=== PATIENT | female | born 1935 | race Caucasian/White ===

== ENCOUNTER 2022-07-07 15:39 | Inpatient (IN) | payer OTHER, MEDICARE ==
[~2022-07-07] VITALS: Ht 152.4 cm; Wt 65.0 kg
[2022-07-07] MEDS ORDERED: HYDROCODON-ACE1 EAC8 PO (16:12)
[2022-07-07] MEDS ORDERED: METHOCARBAMOL750 MG PO (16:14)
[2022-07-07] MEDS ORDERED: AMITRIPTYLINE H10 MG PO (16:15)
[2022-07-07] MEDS ORDERED: HYDROCHLOROTH12.5 MG PO (16:16)
[2022-07-07] MEDS ORDERED: PRENATAL FORMU1 EAC3 PO (16:17)
[2022-07-07 18:38] VITALS: BP 105/73
--- NOTE | 2022-07-07 18:47 | EKG ---
[facility] [address] [facility] [address] [facility] [place] [address] Signed Sinus rhythm with 1st degree AV block Right bundle branch block Left anterior fascicular block Bifascicular block Abnormal ECG No previous ECGs available Confirmed by MOUSTAPHA ENCARNACION MD ([id number]) on 07/07/2022 6:47:38 PM Electronically Signed By: MOUSTAPHA ENCARNACION MD 07/07/22 1847 PATIENT NAME: CHAPIS LAZARO Electrocardiogram DATE OF : [birth year] PHYSICIAN: MOUSTAPHA ENCARNACION MD REPORT #: [id number] REPORT IS CONFIDENTIAL AND NOT TO BE RELEASED WITHOUT AUTHORIZATION
--- NOTE | 2022-07-07 19:14 | NUR ---
Admin fentanyl 50mcg IV for 7/10 left hip pain.
[2022-07-07 21:36] VITALS: BP 101/67
[2022-07-08 01:46] VITALS: BP 106/64
--- NOTE | 2022-07-08 02:08 | NUR ---
Went in and did two am vitals. Family at bedside. Took water, other liquids and food away from the bedside. Call light within reach. Patient does not need anything at this time.
[2022-07-08 05:35] VITALS: BP 127/68
--- NOTE | 2022-07-08 06:23 | NUR ---
PT WAS ADMITTED FROM THE ER WITH A LEFT HIP FX. PT STARTED ON IVF AND DILAUDID GIVEN FOR PAIN MANGEMENT. PUREWICK IN PLACE AND WORKING WELL. PT NPO SINCE MIDNIGHT IN PREPARATION FOR SURGERY TODAY. PT'S FAMILY REMAINED WITH PT THROUGHOUT SHIFT. SAFETY PRECAUTIONS MAINTAINED. CALL LIGHT WITHIN REACH. WILL CONTINUE TO MONITOR.
--- NOTE | 2022-07-08 07:40 | NUR ---
THIS RN TO ROOM TO ASSIST WITH PREPARING PT FOR SURGERY. CHG WIPE DOWN COMPLETED BY APARNA MONTERO. ANATHESIA SUMMARY COMPLETE. PRE PROCEEDURE CHECK LIST COMPLETE. ABX NOTED TO BE ORDERED FOR TOMORROW, PHARMACY CALLED AND TALENT ACQUISITION OPERATIONS MANAGER TO OR DOSE MOVED FORWARD TO TODAY. CITY AUDITOR TO BEDSIDE TO REVIEW CASE WITH PT. PT AND FAMILY STATE THEIR QUESTIONS HAVE BEEN ANSWERED. NO ADDITIONAL NEEDS AT THIS TIME. SCD'S INPLACE. CALL LIGHT WITHIN REACH. BED RAILS UP.
--- NOTE | 2022-07-08 08:14 | NUR ---
Patient left floor to surgery at this time.
--- NOTE | 2022-07-08 09:34 | NUR ---
PT TAKEN TO CT BY THIS RN. PT REPORTS 9/10 PAIN IN LEFT HIP WITH MOVEMENT TO CT TABLE. SEE MAR FOR MEDICATION GIVEN. PT RETURNED TO ROOM. FAMILY AND PTS RN UPDATED. NO ADDITIONAL NEEDS AT THIS TIME. CALL LIGHT WITHIN REACH. BED RAILS UP.
[2022-07-08 11:08] VITALS: BP 132/80
--- NOTE | 2022-07-08 11:34 | NUR ---
Dilaudid 0.5mg IV admin at this time for reported 7/10 left hip pain. Patient is alert and oriented x4, vital signs stable. SP02 97% on room air, cont 02 sat monitoring intact. Patient denies chest pain and or shortness of breath. Patient has visitors at bedside. No current needs at this time. Personal supplies and call light within reach.
[2022-07-08] MEDS ORDERED: OXYCODONE-ACET1 EAC3 PO (12:08)
[2022-07-08] MEDS ORDERED: METHOCARBAMOL500 MG PO (12:09)
[2022-07-08] MEDS ORDERED: BACLOFEN10 MG PO (12:09)
[2022-07-08] MEDS ORDERED: AMLODIPINE BESY10 MG PO (12:10)
[2022-07-08] MEDS ORDERED: FLUTICASONE PRO16 GM NAS (12:20)
[2022-07-08] MEDS ORDERED: VITAMIN D325 MCG PO (13:08)
[2022-07-08] MEDS ORDERED: CALCIUM 500-VI1 EAC3 PO (13:10)
[2022-07-08 17:38] VITALS: BP 126/79
--- NOTE | 2022-07-08 18:09 | EKG ---
[facility] [address] [facility] [place] [address] Signed Sinus tachycardia Right bundle branch block Left anterior fascicular block Bifascicular block T wave abnormality, consider lateral ischemia Abnormal ECG No previous ECGs available Confirmed by MOUSTAPHA ENCARNACION MD ([id number]) on 07/08/2022 6:09:33 PM Electronically Signed By: MOUSTAPHA ENCARNACION MD 07/08/22 1809 PATIENT NAME: CAHPIS LAZARO Electrocardiogram DATE OF : [birth year] PHYSICIAN: MOUSTAPHA ENCARNACION MD REPORT #: [id number] REPORT IS CONFIDENTIAL AND NOT TO BE RELEASED WITHOUT AUTHORIZATION
--- NOTE | 2022-07-08 19:44 | NUR ---
REPORT RECEIVED FROM DAY SHIFT RN. PT RESTING IN BED. TELE READING ST WITH HR LOW 100'S. PT STATED THAT PAIN IS OK. SAFETY PRECAUTIONS MAINTAINED. CALL LIGHT WITHIN REACH. WILL CONTINUE TO MONITOR.
--- NOTE | 2022-07-08 19:55 | NUR ---
PT IV ALARMING, NEW BAG FLUIDS NOW INFUSING. IV SITE WNL. DENIES OTHER NEEDS.
--- NOTE | 2022-07-08 20:45 | NUR ---
PT ASSESSED AND MEDICATIONS GIVEN. PT TURNED SLIGHTLY TO THEIR RIGHT SIDE. VSS. TELE READING NSR WITH A HR OF 98. PT'S GRANDDAUGHTER IS STAYING ST BEDSIDE. SAFETY PRECAUTINOS MAINTAINED. CALL LIGHT WITHIN REACH. WILL CONTINUE TO MONITOR.
[2022-07-08 20:53] VITALS: BP 118/78
--- NOTE | 2022-07-09 02:57 | NUR ---
IV ALARMING, CPOX ALARMING; PT BENT ARM. PT GRIMACING WHEN COVERING UP, ASK PT IF SHE WAS IN PAIN SHE SAID NOT BAD. MED WITH MEME CERVANTES, PT THANKED THIS RN, WELL GRANDDAUGHTER. ENCOURAGED PT TO LET STAFF KNOW WHEN SHE IS HURTING. CURRENT HR 98 PER TELE.
[2022-07-09 05:40] VITALS: BP 115/72
--- NOTE | 2022-07-09 06:35 | NUR ---
PT RESTED WELL DURING THE SHIFT. TELE READING ST WITH A HR IN THE LOW 100'S. VSS. PAIN MANAGED WITH SCHEDULED PERCOCET AND PRN DILAUDID. IVF INFUSING PER ORDER. GOOD OUTPUT NOTED. PT'S GRANDDAUGHTER STAYED AT BEDSIDE THROUGHOUT SHIFT. SAFETY PRECAUTIONS MAINTAINED. CALL LIGHT WITHN REACH. WILL CONTINUE TO MONITOR.
--- NOTE | 2022-07-09 07:35 | NUR ---
RECIEVED BEDSIDE REPORT FROM CADENCE NAIR. PT IS AWAKE AND ALERT IN BED, GRANDDAUGHTER AT BEDSIDE. PT DENIED NEEDS AT THIS TIME. DENIED PAIN. NO NEW ORDERS.
--- NOTE | 2022-07-09 08:01 | NUR ---
PT REPORTS PAIN ON LEFT ANKLE, DESCRIBED "BURNING". UPON ASSESSMENT, PTS SOCK WAS BUNCHED UP AT ANKLE WITH FOOTIE SCD OVER THE AREA. REMOVED SOCK AND SCD, MOVED ANDREINA HOSE UP. DIME SIZED NON-BLANCHABLE RED AREA ON LEFT ANKLE BONE. CONSULTED WITH CADENCE MORENO, RECOMMENDED USING FOOT PILLOWS. ANDREINA HOSE AND SOCK SMOOTHED OUT AND SCD REPLACED. FOOT PILLOWS PLACED TO RELIEVE PRESSURE. PT REPORTED IT FEELS BETTER.
--- NOTE | 2022-07-09 09:01 | NUR ---
PT STILL COMPLAINING OF PAIN. 0.5MG DILAUDID GIVEN WITH GOOD RESULTS. DR VIDES ROUNDED WHILE IN THE ROOM. SURGERY MAY BE POSTPONED DUE TO HEART RATE. PT HAS NO NEEDS AT THIS TIME.
--- NOTE | 2022-07-09 09:52 | NUR ---
PT PAIN IS WELL CONTROLLED AT THIS TIME. UPDATED FAMILY ON PLAN OF CARE. PT AND FAMILY HAVE NO QUESTIONS. REFILLED WATER AND ICE PER PT REQUEST. NO OTHER NEEDS AT THIS TIME. GRANDSON IS AT BEDSIDE.
[2022-07-09 10:55] VITALS: BP 80/52
--- NOTE | 2022-07-09 11:42 | NUR ---
PT SLEEPING SOUNDLY. DID NOT WAKE WHEN STARTING MAG PIGGYBACK.
[2022-07-09 14:45] VITALS: BP 100/66
--- NOTE | 2022-07-09 14:45 | NUR ---
PT IS AWAKE AND ALERT IN BED. SHE HAS FAMILY AT BEDSIDE. SHE STATES "I'M FEELING GREAT!". HR LOWER THAN IT HAS BEEN, SILL >100.
--- NOTE | 2022-07-09 17:08 | NUR ---
PT CALL LIGHT ON. PT REPORTS HER BED IS WET. PURE WICK SUCTION NOTED TO NOT BE TURNED ON. LINENS CHANGED. ERNESTINA CARE AND PARTIAL BED BATH PERFORMED. NEW PURE WICK PLACED AND SUCTION ON. PT REPORTS 7/10 PAIN WITH ACTIVITY OF BED CHANGE AND BATH. SCHEDULED AND PRN MEDICATION GIVEN. PT REPORTS SHE FEELS COMFORTABLE NOW. NO ADDITONAL REQUESTS OR COMPLAINTS. BED RAILS UP. CALL LIGHT WITHIN REACH.
--- NOTE | 2022-07-09 18:10 | NUR ---
PT HAD MAG RIDER TODAY. HR REDUCED AFTER MEDICATION, TELE D/C. PUREWICK IN PLACE, LARGE VOID. BED CHANGE. FAMILY AT BEDSIDE. PT IS EATING FOOD FAMILY BROUGHT IN. NO BM SINCE 07/07, SENNA AND MIRALAX GIVEN. 1 EPISODE OF SEVERE PAIN EARLY IN SHIFT, PAIN CONTROLED AFTER SCHEDULED PERCOCET AND PRN DILAUDID. MODERATE PAIN AFTER BED CHANGE, PAIN CONTROLLED WITH PRN AND SCHEDULED MEDICATIONS. SURGERY IS STILL SCHEDULED FOR [place] AM.
[2022-07-09 18:11] VITALS: BP 84/52
--- NOTE | 2022-07-09 19:28 | NUR ---
REPORT RECEIVED FROM DAY SHIFT RN. PT LYING IN BED ALERT AND ORIENTED. REPORTS SHE IS COMFORTABLE AT THIS TIME. TELE DC'D PER ORDER. FAMILY IN ROOM. WHITE BOARD UPDATED. CALL LIGHT IN REACH.
[2022-07-09 20:29] VITALS: BP 93/60
[2022-07-09 20:35] VITALS: BP 94/60
--- NOTE | 2022-07-09 20:52 | NUR ---
DR. VIDES CALLED AND PROVIDED UPDATE ON BP AND HR. DR. CAMEJO NOTIFIED FOR LOW BP. NEW ORDERS RECEIVED.
--- NOTE | 2022-07-09 21:32 | NUR ---
EVENING ASSESSMENT COMPLETE. SCHEDULED MEDS ADMIN PER EMAR. SCHEDULED PAIN MEDS ADMIN FOR 10 HEADACHE/LEFT HIP PAIN. DENIES NAUSEA. IV BOLUS INFUSING PER ORDER. NEW 20G IV PLACED IN LEFT FOREARM. PT NOEL WELL. IV DC'D IN RIGHT FOREARM WNL. TIP INTACT. SCD'S/TEDS/HP IN PLACE. CMS INTACT BILAT. ASSISTED TO REPOSITION. PUREWICK IN PLACE WITH CLEAR YELLOW URINE. FAMILY IN ROOM TO SPEND THE NIGHT. EXTRA BLANKET AND PILLOWS PROVIDED. PT/FAMILY DENY QUESTIONS OR CONCERNS. CALL LIGHT IN REACH.
--- NOTE | 2022-07-09 22:21 | NUR ---
PT REPORTS "BURNING" PAIN IN LEFT LEG THAT RADIATES UP TO LEFT HIP. ASSISTED PT TO REPOSITION LEFT LEG. PRN FOR PAIN ADMIN PER EMAR.
--- NOTE | 2022-07-10 00:05 | NUR ---
PT RESTING WITH EYES CLOSED. AWAKENS EASILY. REPORTS PAIN IS TOLERABLE AT THIS TIME. AT REST SpO2 87-88% ON RA. 1L/NC PLACED. SpO2 MID 90'S. HR 90'S. PT NPO AT THIS TIME. NO FURTHER NEEDS.
--- NOTE | 2022-07-10 02:50 | NUR ---
PT RESTING WITH EYES CLOSED. RESPIRATIONS EVEN. AWAKENS EASILY TO VOICE. ANESTHESIA PROVIDER ON FLOOR TO REVIEW CHART. BLOOD PRESSURE ASSESSED PER REQUEST, WNL. PT DENIES PAIN. ASSESSMENT UNCHANGED. NO NEEDS AT THIS TIME. FAMILY IN ROOM. CALL LIGHT IN REACH.
[2022-07-10 02:52] VITALS: BP 118/69
--- NOTE | 2022-07-10 04:06 | NUR ---
CALL LIGHT ANSWERED. PT COLD, WARM BLANKET PROVIDED. PT DENIES PAIN. CPOX IN PLACE. SpO2 MID 90'S WITH 1L/NC. HR LOW 100'S. NO FURTHER NEEDS. CALL LIGHT IN REACH.
--- NOTE | 2022-07-10 04:58 | NUR ---
DR VIDES CALLED FOR UPDATED BP/HR. RECORDED 0252 REPORTED. PLAN SURGERY AT 0800.
[2022-07-10 05:47] VITALS: BP 132/84
--- NOTE | 2022-07-10 06:02 | NUR ---
ASSISTED PT TO USE BEDPAN WITH NO RESULTS. ERNESTINA CARE DONE. NEW PUREWICK IN PLACE. SURGICAL WIPE DOWN COMPLETE. CLEAN GOWN AND LINENS PROVIDED. PT REPORTS LEFT HIP PAIN 9/10 AFTER ACTIVITY. PRN FOR PAIN ADMIN PER EMAR. PT ON RA AT THIS TIME, SpO2 MID 90'S. 2PA TO REPOSITION IN BED. SCD'S/TEDS/HP IN PLACE. CMS INTACT BILAT. PT REMAINS NPO FOR PROCEDURE. IVF INFUSING WNL. NO FURTHER NEEDS. CALL LIGHT IN REACH.
--- NOTE | 2022-07-10 07:46 | NUR ---
PT IS OFF THE FLOOR FOR SURGERY.
[2022-07-10 11:15] VITALS: BP 115/89
--- NOTE | 2022-07-10 11:15 | NUR ---
PT BACK TO ROOM FROM PACU BY CADENCE ELLIOTT. BEDSIDE REPORT GIVEN TO THIS RN. DR CAMEJO IN FOR HOSPITALIST CONSULT.
--- NOTE | 2022-07-10 11:34 | NUR ---
07/10/22 1134 Sheets,Jacqui 0937 PT ARRIVED TO PACU ON RA, O2 SAT LOW 90S AND [employer] REQUEST O2 MASK 6L, O2 MASK PLACE. PT EYES OPEN AND PT LOOKING STRAIGHT. O2 INCREASED TO UPPER 90S. PT ABLE TO FOLLOW COMMANDS FOR DEEP BREATHING WHEN ASKED RESP ENEN AND UNLABORED. 0944 PT REPORTS PAIN IN RIGHT HIP, NO GRMACING NOTED BUT FURROWED BROW NOTED. PT DENIES NAUSEA. O2 REMOVED, O2 SAT 100% AND PT CONTINEUS TO DEEP BREATHE OFF AND ON. 0950 2L NC PLACED DUE TO 02 SAT LOW 90S. PT REPORTS 10/10 PAIN IN HIP AND DOWN HER LEG. [id number] PAIN MEDICATIONS GIVEN WITH NO DECREASE IN 02 SAT AND NO DECREASE IN PAIN LEVEL PER PT. CYRO CUFF PLACED. VOID NOTED IN PURWICK. 1015 [employer] CALLED AND NEW ORDER RECEIVED FROM [employer]. [id number] PAIN MEDICATION GIVEN PER EMAR. 1100 PT REPORTS PAIN IS SLIGHTLY BETTER 8/10, PT DENIES BURNING DOWN HER LEG. PT LAUGHING WITH RN AND PLAN OF CARE DISCUSSED. [employer] UPDATED AND AGREES WITH PLAN, PT TO RETURN TO ROOM AND RESUME ORAL MEDICATION. 1115 PT TO ROOM AND REPORT GIVEN TO RN, DR. CAMEJO AND FAMILY AT BEDSIDE. ALL QUESTIONS ANSWERED.
--- NOTE | 2022-07-10 11:45 | NUR ---
PT IN TO ASSIST PT TO THE CHAIR. PT DISCONNECTED FROM ALL TUBES AND WIRES. WITH PHYSICAL THERAPY AND RN ASSIST. PT C/O SEVERE PAIN WITH MOVEMENT THAT SUBSIDED WITH REST. AM MEDICATIONS GIVEN LATE PER ETHNOLOGY TEACHER RECOMMENDATION. IMAGING IN TO DO DOPLER ULTRASOUND OF LEG GIVEN SHARP PAIN IN LOWER LEG. NEGATIVE FOR DVT. DR VIDES NOTIFIED.
[2022-07-10 12:13] VITALS: BP 96/61
--- NOTE | 2022-07-10 12:16 | NUR ---
SECOND SET OF POST-OP VITALS HAS A SOFT BP AT 96/61, HR 109. ADVISED DR CAMEJO PER PARAMETERS. DR CAMEJO ADVISED TO "JUST WATCH FOR NOW". PT IS UP IN THE CHAIR AFTER PT. SHE IS TOLERATING PUDDING AND WATER PER HER REQUEST.
[2022-07-10 13:22] VITALS: BP 120/64
--- NOTE | 2022-07-10 13:28 | NUR ---
PT IS BACK FROM CT. SHE IS COMFORTABLE. SCHEDULED PAIN MEDICATION GIVEN. PT REQUESTED NOT TO HAVE THE CYROCUFF ON FOR A LITTLE BIT.
--- NOTE | 2022-07-10 17:36 | NUR ---
PATIENT GIVEN SCHEDULED PERCOCET FOR 5/10 LEFT HIP PAIN.
--- NOTE | 2022-07-10 18:29 | NUR ---
PT OFF THE FLOOR FOR SURGERY. PT RETURNED AFTER SEVERAL HOURS. PT ON CPOX DUE TO LOWER O2 LEVELS. PT DECLINED CYROCUFF, BUT DOES HAVE ICE PACKS ON HER HIP. PT HAD SEVERE PAIN POST OP, BUT WAS ABLE TO CATCH UP. PT HAD DOPLER ULTRASOUND OF LEFT LEG TO TO BURNING PAIN IN LOWER LEG. PT ALSO HAD CT SCAN OF SPINE. BOTH NEGATIVE. PT HAD LARGE BM AFTER BISACOYDOL SUPPOSITORY. PT UP TO CHAIR WITH PHYSICAL THERAPY WITH TOE-TOUCH WEIGHT BEARING. PT UP TO [facility].
--- NOTE | 2022-07-10 19:30 | NUR ---
REPORT RECEIVED FROM DAY SHIFT RN. PT LYING IN BED RESTING WITH EYES CLOSED. AWAKENS EASILY. SpO2 86% ON RA. 2L/NC PLACE. SpO2 MID 90'S. HR ONE TEENS. PT DENIES NEEDS AT THIS TIME. FAMILY IN ROOM. CALL LIGHT IN REACH. WHITE BOARD UPDATED.
[2022-07-10 20:06] VITALS: BP 123/79
--- NOTE | 2022-07-10 20:17 | NUR ---
EVENING ASSESSMENT COMPLETE. LEFT HIP DRESSING INTACT WITH SCANT AMOUNT SEROSANG DRAINAGE. CMS INTACT. SCD'S/TEDS/HP IN PLACE. ICE PACK TO LEFT HIP. PT REPORTS PAIN IS TOLERABLE. DENIES NAUSEA. VS AND I&O OBTAINED. PT VOIDING QS. ASSISTED PT TO REPOSITION. PT DENIES FURTHER NEEDS. CALL LIGHT IN REACH.
--- NOTE | 2022-07-10 21:51 | NUR ---
PT REPORTS CONTINUED PAIN 8/10 IN LEFT HIP. 2PA TO REPOSITION IN BED. FRESH ICE TO HIP. NO RELIEF. PRN FOR PAIN ADMIN PER EMAR. CPOX IN PLACE. IV IN LEFT FOREARM TENDER TO FLUSH. IV DC'D WNL. TIP INTACT. IVF INFUSING IN RIGHT FOREARM PER ORDER. PT DENIES FURTHER NEEDS. CALL LIGHT IN REACH. GRANDDAUGHTER IN ROOM TO STAY THE NIGHT.
--- NOTE | 2022-07-10 22:50 | NUR ---
PT AWAKE IN BED. REPORTS PAIN IN LEFT HIP IMPROVED AND "BEARABLE" AT THIS TIME. IV ABX INFUSING NWL. DENIES NEEDS.
--- NOTE | 2022-07-11 00:49 | NUR ---
PT RESTING IN BED WITH EYES CLOSED. RESPIRATIONS EVEN. SpO2 98% ON 2L/NC. HR 90'S.
[2022-07-11 01:40] VITALS: BP 118/77
--- NOTE | 2022-07-11 01:42 | NUR ---
PT RESTING WITH EYES CLOSED. AWAKENS EASILY. VS AND I&O OBTAINED. PT REPORTS SHE IS RESTING WELL. DENIES NEEDS.
--- NOTE | 2022-07-11 04:21 | NUR ---
PT IN BED RESTING WITH EYES CLOSED. RESPIRATIONS EVEN. SpO2 98% WITH 2L/NC. HR 90'S.
[2022-07-11 06:05] VITALS: BP 110/68
--- NOTE | 2022-07-11 06:25 | NUR ---
VS AND I&O OBTAINED. ERNESTINA CARE DONE AND CLEAN PUREWICK IN PLACE. ASSESSMENT UNCHANGED. SCD'S/TEDS/HP IN PLACE. PT PREFERS ICE PACK TO CRYO CUFF. FRESH ICE PACK TO LEFT HIP. LEFT HIP DRESSING INTACT WITH SCANT AMOUNT SHADOWING. CMS INTACT BLE. PT REPORTS LEFT HIP/KNEE PAIN /10. PRN FOR PAIN ADMIN PER EMAR. FAMILY IN ROOM, DISCUSSED NEED FOR DME ON DISCHARGE. CONSULT FOR CM PLACED. PT/FAMILY DENY FURTHER NEEDS. CALL LIGHT IN REACH.
--- NOTE | 2022-07-11 07:08 | OR ---
[facility] [address] [place], [place] [address] Signed DATE OF OPERATION: 07/10/2022 SURGEON: Tung Carnes MD PREOPERATIVE DIAGNOSIS: Left intertrochanteric hip fracture. POSTOPERATIVE DIAGNOSIS: Left intertrochanteric hip fracture. PROCEDURE PERFORMED: Open reduction and internal fixation of left hip. COUNSELOR MANAGER: KARENA Parker. ANESTHESIA: General. BLOOD LOSS: 165 mL. IMPLANTS: A 4-hole Synthes DHS with 100 mm lag screw and 4 screws distally, compression screw as well. BRIEF HISTORY: Chapis is an 86-year-old female who suffered a ground level fall on Sunday. We attempted to take her to the operating room Sunday morning; however, she was noted to be persistently tachycardic. On workup of the tachycardia, she was found to have a preoperative pulmonary embolus and she was not operated on, was taken back to the floor and medically stabilized. She was felt to be stable for surgery today. The risks, benefits, and alternatives of surgery were discussed with her and her family and they elected to proceed. PROCEDURE DESCRIPTION: Once consent was obtained, she was taken to the operating room. After adequate anesthesia, she was placed on the fracture table. Both feet were placed in traction boots and Leadbetter maneuver was performed. The fracture was still slightly displaced, however, so we could reduce and clamp it. The hip was then prepped and draped in a Electronically Signed By: TUNG CARNES MD 07/11/22 0708 PATIENT NAME: CHAPIS LAZARO OPERATIVE REPORT DATE OF : [birth year] REPORT #: [id number] PHYSICIAN: TUNG CARNES MD PCP: OTHER PCP REPORT IS CONFIDENTIAL AND NOT TO BE RELEASED WITHOUT AUTHORIZATION [facility] [address] [place], [place] [address] Signed standard sterile fashion and the incision was made laterally. Initially, this was a 4-inch incision and was increased to 5 inch. This was carried through skin and subcutaneous tissue and down to the IT band, which was divided longitudinally. All bleeders were cauterized. The vastus lateralis was then split longitudinally and 130 guide was placed along the lateral border of the femur in line with the femoral neck. The guide pin was advanced from the lateral femur across the femoral neck into a low center-center position of the femoral head. This was verified using biplanar fluoroscopy. This was measured to 100 mm lag screw. The fracture was then reduced with a bone hook and held with a pointed tenaculum. Once this was accomplished, the TAP was used to tap the bone as it was fairly good bone. The lag screw was then placed over the guide pin and subsequently, the 4-hole plate was placed over the screw. Once this was accomplished, the plate was centered on the lateral femur and the 4 distal screws were drilled and appropriate length screws were placed. The compression screw was then placed in the lag screw and tightened holding the reduction. The clamp was then removed and the reduction was held. The wound was copiously irrigated with normal saline. The deep fascia was closed with #2 Stratafix, subcutaneous tissue with 0 Stratafix, and the skin with sharon. It was dressed with an Aquacel Ag dressing. She was awakened, taken to the recovery room in satisfactory condition. All sponge, needle, and instrument counts were correct. Tung Carnes MD BA/MODL /[id number] Copies: ~ Electronically Signed By: TUNG CARNES MD 07/11/22 0708 PATIENT NAME: CHAPIS LAZARO OPERATIVE REPORT DATE OF : [birth year] REPORT #: [id number] PHYSICIAN: TUNG CARNES MD PCP: OTHER PCP REPORT IS CONFIDENTIAL AND NOT TO BE RELEASED WITHOUT AUTHORIZATION
--- NOTE | 2022-07-11 07:13 | NUR ---
REPORT RECEIVED FROM CADENCE WRIHGT. PT RESTING IN BED, REPORTS 3/10 PAIN IN LEFT HIP THAT IS WELL CONTROLLED AT THIS TIME. PT DENIES NEED FOR ADDITIONAL PAIN MEDICATION. DR. VIDES TO BEDSIDE. PT UPDATED ON PLAN OF CARE. PT VERBALIZES UNDERSTANDING AND STATES HER QUESTIONS HAVE BEEN ANSWERED. PT DENIES ADDITIONAL REQEUSTS OR COMPLAINTS. OXGYEN SATURATION 98% ON 2L O2 BY NC AT THIS TIME. CALL LIGHT WITHIN REACH. BED RAILS UP.
--- NOTE | 2022-07-11 07:44 | NUR ---
MORNING ASSESSMENT AND MEDICATION DUE. PT AWAKE AND ALERT. VISITING WITH GRANDDAUGHTER. PT REPORTS PAIN IS WELL CONTROLLED AT 3/10. PT RELUCTANT TO GET UP OUT OF BED BUT VERBALIZES UNDERSTANDING OF IMPORTANCE OF MOVEMENT AND ACTIVITY. 2 PERSON ASSIST WITH FWW UP TO CHAIR. PT ABLE TO TAKE 2-3 SLIDE STEPS WITH FWW TO GET UP TO CHAIR. PT REMAINS TOE TOUCH ONLY ON LEFT SIDE. PT NOTED TO USE ELBOW TO SUPPORT RIGHT ARM RATHER THAN HAND. PT REPORTS "CARPEL TUNNEL" IN RIGHT AND STATES "IT'S JUST EASIER TO USE MY ELBOW." EDUCATION DONE WITH PT REGARDING MOVEMENT AND ACTIVITY. PT REPORTS 10/10 PAIN WITH ACTIVITY THAT CALMS BACK TO 3/10 ONCE RESTING. PT ALERT AND OREINTED TO ALL. LUNG SOUNDS REMAIN CLEAR. PT HAS REMOVED HER NASAL CANULA AND HAS OXGYEN SATUARTION OF 98% ON ROOM AIR. CPOX DC'D. HEART TONES MILDY TACHYCARDIC WITH HEART RATE IN THE 90-110 WITH MURMUR HEARD. VERBAL ORDERS FROM DR. VIDES TO SALINE LOCK IV SITE, ORDERS ENETERED, REPEAT BACK PERFORMED. IV FLUSHED AND SALINE LOCKED, ALOCHOL CAPS APPLIED. CMS INTACT, STRONG PEDIAL AND TIBIAL PULSES FELT. PINK WARM TOES WITH STRONG PLANTAR AND DORSI FLEXION. PT REPORT NORMAL SENSATION. DRSSING TO LEFT HIP UNCHNAGED WITH 2 SMALL 0.5 CMS SPOTS OF SHADOWING NOTED, ONE AT DISTAL AND ONE AT PROXIMAL ENDS OF DRESSING. DRESSING OTHERWISE C/D/I. I.S. PROVIDED. PT DEMONSRATES USE REACHING 1000-1250ML X5. PT EATING BREAKFAST. MEDICATIONS GIVEN. NO ADDITIONAL REQUESTS OR COMPLAINTS. CALL LIGHT WITHIN REACH. BED RAILS UP. PTS GRANDDAUGHTER AT BEDSIDE.
--- NOTE | 2022-07-11 08:36 | NUR ---
THIS RN TO ROOM TO CHECK ON PT. PT REMAINS UP TO CHAIR. RESTING WITH EYES CLOSED. RESPRIATIONS EVEN AND UNLABORED. PT ALLOWED TO REST. CALL LIGHT WITHIN REACH. PTS GRANDDAUGHTER AT BEDSIDE.
--- NOTE | 2022-07-11 08:49 | NUR ---
PT CALL LIGHT ON. PT REQUESTS PAIN MEDICATION FOR 8/10 HIP PAIN IN LEFT HIP. PT ASSISTED WITH REPOSITIONING IN CHAIR. SEE MAR FOR MEDICATION GIVEN. PT REPORTS REPOSITIONING "HELPS." PT DENIES ADDITIONAL REQUESTS OR COMPLAINTS. CALL LIGHT WITHIN REACH. PTS GRANDDAUGHTER AT BEDSIDE.
--- NOTE | 2022-07-11 10:00 | NUR ---
SPOKE TO PATIENT ABOUT HER DISCHARGE PLAN OF CARE. PATIENT FX. LEFT HIP ON 07/07/22. PATIENT LIVES IN [facility] AND WAS VISITING FAMILY IN [place]. PATIENT PLANS TO GO HOME WITH HER DAUGHTER WHO LIVES IN [place] FOR THE PATIENT'S REHAB. AND THEN RETURN TO [facility]. PATIENT HAS A SUPPORTIVE FAMILY. PATIENT CAN PREFORM HER ADLS WITHOUT HELP. PATIENT HAS A WALKER AND ONLY 1 STEP TO ENTER HER DAUGHTER'S HOUSE WHERE SHE WILL BE STAYING. PATIENT WOULD LIKE TO GO HOME TO HER DAUGHTER'S HOUSE FOR REHAB. AND RETURN TO [place] IN THE NEAR FUTURE.PATIENT DOES NOT HAVE FOOD INSECURITIES AND CAN AFFORD HOUSING. PATIENT'S DEMOGRAPHICS IN THE MEDICAL RECORD ARE CORRECT.
--- NOTE | 2022-07-11 10:11 | NUR ---
THIS RN TO ROOM TO CHECK ON PT. PT REMAINS UP TO CHAIR. DR CAMEJO TO BEDSIDE FOR ROUNDS. PT AND FAMILY VERBALIZES UNDERSTANDING OF PLAN OF CARE AND STATES THEIR QUESTIONS HAVE BEEN ANSWERED. PT REPORTS 3/10 PAIN AND STATES "I'M FINE WHEN I JUST SIT HERE, IT DOESN'T REALLY HURT AT ALL, IT'S WHEN I MOVE THAT IT GETS BAD." PT DENIES ADDITIONAL REQUESTS OR COMPLAINTS. FAMILY AT BEDSIDE. CALL LIGHT WITHIN REACH.
[2022-07-11 10:26] VITALS: BP 91/60
--- NOTE | 2022-07-11 10:30 | NUR ---
PATIENT SITTING UP IN CHAIR, FAMILY IN ROOM. VITALS AND I&O'S CHARTED. CALL LIGHT IN REACH. NO FURTHER NEEDS AT THIS TIME.
--- NOTE | 2022-07-11 10:40 | NUR ---
PT CALL LIGHT ON. PT REQUESTS REFILLS ON WATER, PROVIDED. PT DENIES NEED TO USE RESTROOM AND REPORTS PAIN IN LEFT HIP REMAINS WELL CONTROLLED AT 3/10. NO ADDITIONAL REQUESTS OR COMPLAINTS. CALL LIGHT WITHIN REACH. BED RAILS UP.
--- NOTE | 2022-07-11 10:58 | NUR ---
PT CALL LIGHT ON. PT REPORTS NEED TO USE THE RESTROOM. 2 PERSON ASSIST WITH FWW, TOE TOUCH ONLY TO LEFT LEG, UP TO BEDSIDE COMODE. PT CONTINENT AND DEPENDS DRY. PT VOIDS 300ML CLEAR YELLOW URINE. ERNESTINA CARE DONE. DEPENDS CHANGED. 2 PERSON ASSIST BACK TO CHAIR. PT POSITIONS SELF FOR COMFORT IN CHAIR. PT REPORTS 3/10 PAIN IN LEFT HIP AFTER RESTING. PT DENIES ADDITIONAL REQUESTS OR COMPLAINTS. WARM BLANKET PROVIDED. FRESH ICE PACK IN PLACE (PT CONTINUES TO DECLINE CRYO CUFF). CALL LIGHT WITHIN REACH.
--- NOTE | 2022-07-11 11:30 | NUR ---
PHYSICAL THERAPIST TO BEDSIDE TO WORK WITH PT AND REPORTS PT IS STATING CHEST PAIN AND SORE THROAT. THIS RN TO ROOM. PT POINTS TO LOWER RIGHT CHEST AND STATES 4/10 PAIN. PT DENIES MOVEMENT OF PAIN AND STATES "IT'S JUST NEW BUT NOT THAT BAD." PT UP TO STAND WITH FWW AND 1 PERSON ASSIST FROM PHYSICAL THERAPY AND STATES CHEST PAIN RESOLVES. PT EDUCATION DONE REGARDING ET TUBE DURING SURGERY THAT IS LIKELY GIVING HER A SORE THROAT. PT REPORTS ICE WATER HELPS. PT DENIES ADDITIONAL REQUESTS OR COMPLAINTS. PT WORKING WITH PHYSICAL THEARPY.
--- NOTE | 2022-07-11 11:54 | NUR ---
PT FINISHED WITH PHYSICAL THERAPY. PT UP TO CHAIR, CALL LIGHT ON, PT REQUESTS "PAIN MEDICAITON RIGHT NOW." PT RPEORTS 10/10 PAIN AFTER WORKING WITH PHYSICAL THERAPY THAT IS "GETTING BETTER I REST." SEE MAR FOR MEDICATION GIVEN. LUNCH DELIVERED TO PT. PT DENIES ANY CHEST PAIN, DIZZINESS OR OTHER DISCOMFORTS. NO ADDITIONAL REQUSTS OR COMPLAINTS. CALL LIGHT WITHIN REACH.
--- NOTE | 2022-07-11 13:08 | NUR ---
AFTERNOON ASSESSMENT DUE. PT REMAINS UP TO CHAIR. PT VISITING WITH HER FREDI. PT REPORTS "THAT PAIN PILL WAS JUST A PIECE OF CANDY, IT DIDN'T HELP AT ALL." PT RPEORTS 8/10 PAIN IN LEFT HIP AND REQUESTS ADDITIONAL PAIN MEDICAITON, SEE MAR FOR MEDICATION GIVEN. TIME BACK IN BED OFFERED. PT DECLINES STATING SHE IS "COMFORTABLE" IN THE CHAIR AND WOULD LIKE TO REMAIN UP. CMS REMAINS INTACT WITH STRONG PLANTAR AND DORSI FELXION, STRONG TIBIAL AND PEDIAL PULSES AND SENSATION INTACT. SWELLING NOTED OT LEFT UPPER LEG. LEG SOFT TO TOUCH. DRESSING TO LEFT HIP REMAINS INTACT WITH 4 SMALL PINPOINT DRAINAGE SPOTS SEEN. PT REMAINS ALERT AND OREINTED. LUNG SOUNDS CLEAR. HEART MURMUR CONTINUES WITH MILD TACHYCARDIA HR 90-110. PT ASSISTED WITH PLACING DINNER ORDER. ICE WATER REFILLED. NO ADDITIONAL REQUESTS OR COMPLAINTS. CALL LIGHT WITHIN REACH.
[2022-07-11 13:29] VITALS: BP 109/70
--- NOTE | 2022-07-11 14:00 | NUR ---
THIS RN TO ROOM TO CHECK ON PT. PT REMAINS UP TO CHAIR. RESTING WITH EYES CLOSED. LIGHTS DIMMED TO ALLOW PT TO REST. CALL LIGHT WITHIN REACH.
--- NOTE | 2022-07-11 14:39 | NUR ---
PT. TRIED TO GET PATIENT TO DO PT. EXCERISES THIS AFTERNOON WITH NO LUCK. PATIENT STATES SHE IS NOT WORKING OUT A 2ND TIME TODAY. PATIENT WILL TRY AGAIN IN THE MORNING PER PATIENT. PATIENT STATES SHE IS TO TIRED NOW.
--- NOTE | 2022-07-11 14:56 | NUR ---
PHYSICAL THERAPY TO BEDSIDE TO WORK WITH PT. PT REFUSES WORK WITH PHYSICAL THERAPY RELATED TO PAIN. PT NOW RATES PAIN AT 9/10 AND STATES "I JUST CAN'T DO THAT THERAPY" RELATED TO PAIN AND FATIGUE. YELLOW TRANSLUCENT PILL ALSO FOUND IN PTS LAP. PT STATES "OH THAT'S MY VITAMIN D...FROM MY FAMILY." PT ADVISED NOT TO TAKE MEDICATIONS FROM HOME WITHOUT FIRST VARIFYING WITH NURSE/DOCTOR/PHARMACY STAFF. PT AGREES AND VERBALIZES UNDERSTANDING. PTS NIECE ALSO STATES THAT PT CANNOT TAKE GABAPENTIN RELATED TO AGITATION AND ANXIETY. PTS NIECE STATES PT SEEMS VERY AGITATED AT THIS TIME, PT DENIES. KARENA RICE, CALLED AND UPDATED ON PT STATUS AND DECLINE OF PHYSICAL THERAPY. NEW ORDERS GIVEN, ORDERS ENTERED, REPEAT BACK PERFORMED. PT UPDATED ON MEDICATION OPTIONS AND AGREES TO NEW MEDICATIONS. SEE MAR FOR MEDICATION GIVEN. PHYSICAL THERPIST CALLED AND STATES SHE WILL RETURN IN AN HOUR TO ATTEMPT TO WORK WITH PT AGAIN. PT REMAINS UP TO CHAIR. NO ADDITIONAL REQUESTS OR COMPLAINTS. CALL LIGHT WITHIN REACH. PTS NIECE AT BEDSIDE. GABAPENTIN ADDED TO ALLERGY LIST.
--- NOTE | 2022-07-11 15:20 | NUR ---
PT POST OP DAY 1 AFTER ORIF OF LIFT HIP. PT UP WITH 2 PERSON ASSIST AND FWW AND TOE TOUCH ONLY TO LEFT LEG TO CHAIR, COMODE AND WITH PHYSICAL THERAPY THIS MORNING. PT DECLINING PHYSICAL THERAPY THIS AFTERNOON RELATED TO PAIN. MEDICATIONS ADJUSTED. PT TOLERATING REGULAR DIET WITH GOOD APPITITE. IV SALINE LOCKED. CMS REMAINS INTACT WITH STRONG PEDIAL AND TIBIAL PUSES, NORMAL SENSATION AND STRONG PLANTAR AND DORSI FLEXION THIS SHIFT. DRESSING REMAINS INTACT WITH 4 PINPOINT SPOTS OF OLD DRAINAGE SEEN, OTHERWISE C/D/I. SMALL AMOUNTS OF GENERALIZED SWELLING SEEN LEFT THIGH, THIGH REMAINS SOFT. ALLERGY TO GABAPENTIN REPORTED, MEDICATION DC'D. PURE WICK DC'D TO ENCOURAGE ACTIVITY. LUNG SOUNDS CLEAR, PT TOLERATING ROOM AIR. HEART MURMUR CONTINUES, NO CHANGE, WITH MILD TACHYCARDIA. SCHEDULED LAXITIVE MEDICATIONS GIVEN. I.S. PROVIDED AND PT DEMONSTRATES USE. ICE PACK IN PLACE PT DECLINES CRYO CUFF. PT VOIDING QUANITTY SUFFICIENT. PTS FAMILY AT BEDSIDE THROUGHOUT SHIFT. PT USESE CALL LIGHT AND MAKES NEEDS KNOWN.
--- NOTE | 2022-07-11 15:40 | NUR ---
PT CALL LIGHT ON. PT REQUESTS TO GET UP TO THE RESTROOM. COMODE OFFERED. PT DECLINES WANTING TO WALK TO RESTROOM. 1 PERSON ASSIST WITH FWW UP TO RESTROOM. PT PASSES LARGE AMOUNTS OF GAS, NO BOWEL MOVEMENT NOTED AT THIS TIME. ERNESTINA CARE DONE. DEPENDS CHANGED. PTS NIECE CONTINUES TO STATE THAT PT IS AGITATED. PT FORGETFUL BUT REMAINS ORIENTED TO ALL. PHYSICAL THERAPIST TO BEDSIDE TO WORK WITH PT. PT UP FROM RESTROOM AND AMBLATING WITH PHYSICAL THERAPIST. NO ADDITIONAL NEEDS AT THIS TIME. CALL LIGHT WITHIN REACH.
--- NOTE | 2022-07-11 16:48 | NUR ---
THIS RN TO ROOM TO CHECK ON PT. PT RESTING IN CHAIR WITH EYES CLOSED. RESPIRATIONS EVEN AND UNLABORED. KARENA RICE, CALLED AND UPDATED ON PTS STATUS, PAIN LEVELS, PHYSICAL THERAPY AND CONCERNS FOR CONSTIPATION. ORDERS GIVEN TO MAKE TRAMADOL Q6PRN. NO ADDITIONAL NEW ORDERS AT THIS TIME. WILL UPDATE PT ONCE SHE IS AWAKE. PT ALLOWED TO REST AT THIS TIME. CALL LIGHT WITHIN REACH. PTS NEICE AT BEDSIDE.
--- NOTE | 2022-07-11 17:30 | NUR ---
THIS RN TO ROOM TO CHECK ON PT. PT CONTINUES RESTING WITH EYES CLOSED. RESPIRATIONS EVEN AND UNLABORED. CALL LIGHT WITHIN REACH. PT ALLOWED TO REST. PTS NEICE LEAVING TO GET DINNER FROM OUTSIDE THE HOSPITAL FOR PT.
[2022-07-11 18:21] VITALS: BP 102/63
--- NOTE | 2022-07-11 18:22 | NUR ---
PTS JODI REFUESE VITAL SIGNS FROM AUTOMOBILE SALES REPRESENTATIVE. THIS RN TO ROOM, IMPORTANCE OF VITALS SIGNS EXPLAINED AND FREDI AGREES. PT AWAKENS TO VOICE AND LIGHT TOUCH. VITALS SIGNS STABLE. PT REPORTS 0/10 PAIN AT THIS TIME AND STATES "I JUST WANT TO SLEEP." PT DECLINES GETTING BACK TO BED STATING SHE IS COMFORTABLE UP TO THE CHAIR. NO ADDITIONAL REQUESTS OR COMPLAINTS. CALL LIGHT WITHIN REACH. FREDI AT BEDSIDE.
--- NOTE | 2022-07-11 19:45 | NUR ---
pt'S FAMILY TO NURSES STATION. SBA TO BSC FOR VOID, TOE TOUCH WEIGHT BEARING WITH FWW. pt TOLERATED WELL. VERY BAD RIVER BAND. DIFFICULTY FOLLOWING INSTRUCTIONS TO TRANSFER SELF INTO BED. THIS RN ASSISTS pt'S LEGS INTO BED. SCDS, ANDREINA SAWYERE, HEEL PROTECTORS ON. NEW ICE PACK PROVIDED FOR LEFT HIP. pt REFUSES CRYO CUFF. CALL LIGHT IN REACH. pt RATES PAIN 10/10 WITH MOVEMENT. PRIMARY RN NOTIFIED AND IN ROOM TO MEDICATE pt.
--- NOTE | 2022-07-11 20:00 | NUR ---
Pt assesement completed, very hard of hearing as her hearing aid is sent for repairs. Left hip pain intermittent. Got up with one assist to use the commode. Family at bedside.
--- NOTE | 2022-07-11 20:30 | NUR ---
IN ROOM WITH PRIMARY RN TO COLLECT VS AND I&O'S. pt RESTING IN BED, BILATERAL HEEL PROTECTORS AND SCD'S IN PLACE. PRIMARY RN ELSI REMAINS IN ROOM FOR EVENING MED PASS AND ASSESSMENT. FRESH ICE PROVIDED TO pt AND pt's VERONICAMOIRA SMITH.NO ADDITIONAL NEEDS OR CONCERNS, CALL LIGHT IN REACH.
[2022-07-11 20:38] VITALS: BP 100/59
--- NOTE | 2022-07-11 21:55 | NUR ---
CALL LIGHT ANSWERED, pt AWAKE AND REQUESTED ASSISTANCE WITH USE OF HELL PROTECTOR AND REPOSITIONING LLE, ASSISTANCE PROVIDED. FAMILY REMAINS IN ROOM AND CALL LIGHT IN REACH. NO ADDITIONAL NEEDS OR REQUESTED MADE.
--- NOTE | 2022-07-12 01:02 | NUR ---
Pt resting in bed, no distress noted, no complains at the moment.
--- NOTE | 2022-07-12 04:14 | NUR ---
IN ROOM WITH PRIMARY RN ELSI WHILE PRIMARY RN COMPLETING MORNING ASSESSMENT, NO CHANGES TO LEFT HIP DRESSING COMPARED TO START OF SHIFT. NEW ICE PACK PROVIDED BY PRIMARY RN. pt IN GOOD SPIRITS AND WHEN ASKED HOW SHE WAS DOING, pt STATED, "I THINK I'M DOING PRETTY GOOD". pt INTERACTIVE WITH ASSISTANT STATISTICIAN AND CONVERSATION APPROPRIATE. pt RECENTLY MEDICATED WITH PRN PAIN MEDICATION BY PRIMARY RN. pt AND LEONA SMITH DENIES ADDITIONAL NEEDS OR CONCERNS. CALL LIGHT IN REACH.
--- NOTE | 2022-07-12 04:30 | NUR ---
Pt got up to use the commode. Pt said she feels better than yesterday overall. Had to give oxy due to pain after using the commode. Gave tramadol as pain did not improve with oxy.
[2022-07-12 06:37] VITALS: BP 120/73
--- NOTE | 2022-07-12 06:47 | NUR ---
pt feels she did great overall overnight. Pt is very CACHIL DEHE Pain is slightly more controled with sceduled percocet, PRN oxy and PRN tramadol. Pt is passing lot of gas, no BM. Heart rate still mildly tachy 100s-110s Encouraged pt to walk to bathroom but pt insisted she use the commode. Left hip incision has no change (old shadowing) very mild edema, other neuro's haev been intact.
--- NOTE | 2022-07-12 07:10 | NUR ---
REPORT RECEIVED FROM CADENCE SANCHEZ. PT RESTING IN BED WITH EYES CLOSED. RESPIRATIONS EVEN AND UNLABORED. BED RAILS UP CALL LIGHT WITIN REACH. PTS NEICE AT BEDSIDE. PT ALLOWED TO REST UNDESTURBED.
--- NOTE | 2022-07-12 08:12 | NUR ---
MORNIGN ASSESSMETN AND MEDICATION DUE. PT AWAKE AND ALERT. PT OREINTED TO ALL. PT REPORTS 6/10 PAIN IN LEFT HIP WHILE RESTING IN BED. PT STATES SHE IS READY TO GET UP TO CHAIR. PT TAUGHT TO USE RIGHT FOOT TO SUPPORT LEFT LEG WHILE GETTING UP. PT UP TO RESTROOM WITH 1 PERSON ASSIST AND FWW. PT REPORTS 10/10 PAIN WITH ACTIVITY. CONTINUES TO BE IMPULSIVE WITH MOVEMENTS. PT GRASPS AT WALL, LOWER WALKER, AND OTHER NON SUPPORTIVE ITEMS WHEN TYRING TO MOVE. PT MORE STEADY ON FEET TODAY AND ABLE TO AMBULATE TO RESTROOM AND THEN UP TO CHAIR WITH TOE TOUCH ONLY ON LEFT LEG. LUNG SOUNDS CLEAR. HEART TONES IRREGULAR, WITH LOUD MURMUR HEARD. PT DENIES CHEST PAIN OR PRESSURE. PT DOES REPORT NAUSEA. SEE MAR FOR MEDICATION GIVEN. CMS INTACT WITH STRONG PEDIAL AND TIBIAL PULSES, PLANTAR AND DORSI FLEXION. MILD SWELLING NOTED TO UPPER LEFT THIGH. DRESSING OVER LEFT HIP REMAINS INTACT WITH SPOTS OF SHADOWING ~10%. BREAKFAST DELIVERED TO PT AND PT IS EATING BUT REPORTS POOR APPITITE. I.S. USE DEMONSTRATED, PT REACHES 1250ML X5. NEW ICE PACK PROVIDED. NO ADDITIONAL REQUESTS OR COMPLAINTS. CALL LIGHT WITHIN REACH. PTS NEICE AT BEDSIDE.
[2022-07-12 08:29] VITALS: BP 109/69
--- NOTE | 2022-07-12 09:03 | NUR ---
THIS RN TO ROOM TO CHECK ON PT. PT FINISHED WITH BREAFKAST. PT REPORTS NAUSEA HAS RESOLVED. ICE WATER REFILLED. PT REPORTS 6/10 PAIN AT THIS TIME THAT IS "GETTING A LITTLE BETTER." PHYSICAL THERAPY UPDATED ON PT STATUS. PLAN MADE FOR PHYSICAL THERAPY AND PT STATES SHE IS "GOOD WITH THAT PLAN." PT REMAINS UP TO CHAIR. PT DENIES ADDITIONAL REQUESTS OR COMPLAINTS. CALL LIGHT WITHIN REACH.
--- NOTE | 2022-07-12 09:41 | NUR ---
THIS RN TO ROOM TO CHECK ON PT. PT UP TO CHAIR, FINISHED WITH PHYSICAL THERAPY. PT REPORTS THERAPY "WENT PRETTY GOOD." PT STATES SHE WAS ABLE TO STAND AND MOVE MORE WITHOUT MUCH DISCOMFORT. PT REPORTS 5/10 PAIN IN LEFT HIP AT THIS TIME, ADDITIONAL PRN DOSE OF PAIN MEDICATION GIVEN PER PT REQUEST AND TO ASSIST PT WITH PAIN CONTROL FOR AFTERNOON PHYSICAL THERAPY. PT DENIES RESTROOM NEEDS. PT DENIES NAUSEA. NO ADDITIONAL REQUESTS OR COMPLAINTS. CALL LIGHT WITHIN REACH.
--- NOTE | 2022-07-12 09:42 | NUR ---
SPOKE TO PATIENT ABOUT THE DISCHARGE PLAN. PATIENT PLANS TO GO TO HER DAUGHTER'S HOUSE IN [place] WITH HOMEHEALTH. REFERRAL SENT TO [facility].PATIENT IS ENCOURAGED BECAUSE SHE STATES "TODAY IS A BETTER DAY".
--- NOTE | 2022-07-12 10:07 | NUR ---
PATIENT PLANS TO GO TO HER DAUGHTER'S HOUSE WHEN DISCHARGED THE ADDRESS IS: [id number] [place] [address]. [place]. [phone] [facility]ALTH WAS FAXED THE ADDRESS. PATIENT WILL RETURN HOME TO [facility].
--- NOTE | 2022-07-12 10:19 | NUR ---
THIS RN TO ROOM WITH DR CAMEJO FOR ROUNDS. PT RMEAINS UP TO CHAIR. REPORTS SHE HAS BEEN RESTING ON AND OFF. PT REPORTS 4/10 PAIN IN LEFT HIP AND DENIES NEED FOR ADDITIONAL PAIN MEDICATION AT THIS TIME. PT AND PTS NEICE UPDATED ON PLAN OF CARE AND BOTH VERBALIZE UNDERSTANDING. PT DENIES ADDITIONAL REQUESTS OR COMPLAINTS. CALL LIGHT WITHIN REACH.
--- NOTE | 2022-07-12 10:47 | NUR ---
NEW MEDICATIONS ORDERED. PT REMAINS UP TO CHAIR. RESTING WITH EYES CLOSED, RESPIRATIONS EVEN AND UNLABORED. PT AWAKENS TO VOICE AND LIGHT TOUCH. MEDICATIONS GIVEN. PT REPORTS 4/10 DISCOMFORT IN LEFT HIP THAT IS "PRETTY GOOD RIGHT NOW. IT DOESN'T HURT IF I DON'T MOVE." PT DENIES NEED FOR ADDITIONAL. PAIN MEDICAITON. PT DENIES ADDITIONAL REQUESTS OR COMPLAINTS. CALL LIGHT WITHIN REACH. PTS NEICE AT BEDSIDE.
--- NOTE | 2022-07-12 11:27 | NUR ---
THIS RN TO ROOM TO CHECK ON PT. PT REMAINS UP TO CHAIR, RESTING WITH EYES CLOSED, RESPIRATIONS EVEN AND UNLABORED. PTS NEICE AT BEDSIDE. PT ALLOWED TO REST UNDESTURBED, CALL LIGHT WITHIN REACH.
--- NOTE | 2022-07-12 12:29 | NUR ---
THIS RN TO ROOM TO CHECK ON PT. PT REMAINS UP TO CHAIR, RESTING WITH EYES CLOSED. PT AWAKENS TO VOICE AND LIGHT TOUCH. PT STATES "I HAD A REALLY GOOD NAP." LUNCH DELIVERED, PT DECLINES STATING SHE JUST WANTS SOUP AND PUDDING, PROVIDED. PT UP TO RESTROOM WITH 1 PERSON ASSIST AND FWW. ERNESTINA CARE DONE. DEPENDS CHANGED. FRESH GOWN IN PLACE. 1 PERSON ASSIST BACK TO CHAIR. PT EATING LUNCH. PT REPORTS 0/10 PAIN WHEN RESTING AND 5/10 PAIN WITH ACTIVITY. NO ADDITIONAL REQUESTS OR COMPLAINTS. CALL LIGHT WITHIN REACH. PTS NEICE AT BEDSIDE.
--- NOTE | 2022-07-12 12:43 | NUR ---
SENIOR ORACLE SOA DEVELOPER TO BEDSIDE TO DISCUSS PLAN OF CARE WITH PT. PT EATING CHICKEN NOODLE SOUP. PAIN MEDICATION GIVEN. PT AND PTS NEICE VERBALIZE UNDERSTANDING OF PLAN OF CARE AND STATE THEIR QUESTIONS HAVE BEEN ANSWERED.
[2022-07-12 12:45] VITALS: BP 106/63
--- NOTE | 2022-07-12 13:33 | NUR ---
AFTERNOON ASSESSMENT AND MEDICATION DUE. PT REMAINS UP TO CHAIR, ADDITIONAL FAMILY TO BEDSIDE TO VISIT WITH PT. PT ALERT AND OREINTED TO ALL. PT REPORTS PAIN HAS WORSENED TO 6/10. PT ANTICIPATING PHYSICAL THERAPY AND STATES "IT HURTS BECUASE I HAVE TO DO PHYSICAL THERAPY." PRN PAIN MEDICATION GIVEN IN ANTICIPATION OF ACTIVITY. PT CONTINUES TOLERATING ROOM AIR WITH OXGYEN SATURATIONS 94% AT THIS TIME. LUNG SOUNDS CLEAR. HEART MURMUR UNCHANGED WITH RATE IN THE 90'S. SWELLING TO LEFT THIGH UNCHANGED. DRESSING REMAINS INTACT, APROXIMATLY 10% SHADOWING NOTED. STRONG DORSI AND PLANTAR FLEXION NOTED. STRONG PEDIAL AND TIBIAL PULSES FELT. PT REPORTS NORMAL SENSATION AND DENIES CALF PAIN. BOWEL TONES ACTIVE. PT DENIES NAUSEA. PT UP TO RESTROOM WITH 1 PERSON ASSIST AND FWW. PT PASSES LARGE AMOUNTS OF GAS, NO BOWEL MOVEMENT SEEN. MEDICATION GIVEN. ERNESTINA CARE DONE. 1 PERSON ASSIST WITH FWW BACK TO CHAIR. PT CONTINUES VISITING WITH FAMILY. NO ADDITIONAL REQUESTS OR COMPLAINTS. CALL LIGHT WITHIN REACH.
--- NOTE | 2022-07-12 13:45 | NUR ---
PATIENTS SPO2 SUDDENLY STARTED TO DECREASE WITH NO PRECIPITATING FACTORS. FIO2 TURNED UP TO 90%. RT SEBAS NOTIFIED AND AT THE BEDSIDE. NEB GIVEN. PATIENT HAS GOOD AIRATION THROUGHOUT. MD CAMEJO ALSO NOTIFIED AFTER SEBAS RT TURNED PATIENT UP TO 100% FIO2 AND PEEP 14. MD CAMEJO AT THE BEDSIDE. SEE NEW ORDERS.
--- NOTE | 2022-07-12 14:06 | NUR ---
PT CALL LIGHT ON. PT REPORTS SUSANNE STATING " I JUST DON'T WANT TO DO PHYSICAL THERAPY." ZOFRAN GIVEN. PT ENCROAUGED TO REST AND TAKE ONE STEP AT A TIME. PHYSICAL THERPAY CAN BE ADJUSTED FOR WHAT SHE IS ABLE TO TOLERATE. PT CAMLS AND RESTING IN CHAIR. COMPLECTION PALE. RR 18. OXGYEN SATURATION 94% ON ROOM AIR. PT DENIES ADDITIONAL REQUESTS OR COPMLAINTS. CALL LIGHT WITHIN REACH. FAMILY AT BEDSIDE.
--- NOTE | 2022-07-12 14:26 | NUR ---
PT IS ALERT, ORIENTED AND VISITING WITH FAMILY. PT SEEMS A LITTLE ANGRY THAT SHE IS HERE. PT LIVES IN [place] AND FELL WHILE VISITING FAMILY. HAD GOOD VISIT WITH PT, FAMILY SEEM VERY SUPPORTIVE. HAD PRAYER WITH PT-SHE SEEMED TO WARM UP A LITTLE MORE TO MY PRESENCE. GAVE G.POST AND ENCOURAGEMENT. WILL FOLLOW NEEDED
--- NOTE | 2022-07-12 14:27 | NUR ---
THIS RN TO ROOM TO CHECK ON PT. PT DECLINES LACTULOSE STATING IT WILL MAKE HER TOO NAUSEATED. PT STATES SHE FEELS THE NASUEA IS RELATED TO "TOO MUCH LAXITIVE." RECTAL EXAM PERFORMED. RECTAL PROLAPSE SEEN AND PUSHED BACK IN. NO STOOL FELT IN RECTUM. PT STATES SHE HAS BEEN STRAINING REALLY HARD WITH BOWEL MOVEMENT ATTEMPTS. DR. CAMEJO CALLED AND UPDATED. ORDERS GIVEN FOR ENEMA. ORDERS ENTERED, REPEAT BACK PERFORMED.
--- NOTE | 2022-07-12 14:33 | NUR ---
REPORT RECEIVED FROM CADENCE WILLAMS. AWIATING PTS ARRIVAL TO MED/SURG.
--- NOTE | 2022-07-12 15:07 | NUR ---
THIS RN TO ROOM TO CHECK ON PT. PT REPORTS NAUSEA HAS RESOVLED. PT FINISHED WALKING WITH PHYSICAL THERAPY AND IS UP TO CHAIR DOING EXERCISES. FAMILY VERY SUPPORTIVE OF PT AND ENCOURAGING HER SHE EXERCISES. PT REPORTS PAIN WAS 7/10 WHILE AMBULATING AND IS NOW 5/10 ONCE BACK TO CHAIR AND EXERCISING. PT UPDATED AND OFFERED ENEMA. PHYSICAL THERAPY STATES THEY WILL GET PT BACK TO BED AND CALL WHEN SHE IS DONE WITH HER THERAPY, ENEMA TO BE PERFORMED THEN. NO ADDITIONAL REQUESTS OR COMPLAINTS. CALL LIGHT WITHIN REACH. FAMILY AT BEDSIDE.
--- NOTE | 2022-07-12 15:21 | NUR ---
PATIENT'S FAMILY IS GETTIN THE DAUGHTER'S HOUSE READY TO TAKE THE PATIENT HOME.THE FAMILY HAS THE FOLLOWING EQUIPMENT FOR HOME. PATIENT HAS A WALKER, SHOWER CHAIR AND GAIT BELT. FAMILY WILL OBTAIN A RASIED TOLIET SEAT.
--- NOTE | 2022-07-12 15:22 | NUR ---
pT FINISHED WITH PHYSICAL THERAPY. PT BACK TO BED. ADN LYING IN SUPINE POSITION. PT UNABLE TO LYE ON LEFT SIDE, POSITIONED ON RIGHT SIDE. 8OZ OF SOAP SUDS ENEMA INFUSED INTO RECTUM. PT REPORTS "IT'S TOO FULL." AND IMMIDIATLY WANTS TO GET UP TO COMODE. PT ENCORUAGED TO HOLD INFLUID. PT IS ABLE TO HOLD FLUID FOR 10 MINUTES BEFORE SHE INSISTS ON GETTING UP. 1 PERSON ASSIST UP TO BEDSIDE COMODE. ONLY WATER/ENEMA PASSES FROM COLON. 1 PERSON ASSIST BACK TO BED. ADDITIONAL 8 OZ ENEMA FLUID INSTILLED. PT LYING IN SUPINE POSITION. ENCORUAGED TO HOLD FLUID IN LONGER. CALL LIGHT WITHIN REACH. BED RAILS UP. PT ENCOURAGED TO CALL WHEN SHE CAN'T HOLD FLUID INANY LONGER.
--- NOTE | 2022-07-12 16:10 | NUR ---
PT CALL LIGHT ON. PT REPORTS NEED TO GET UP TO COMODE. 1 PERSON ASSIST WITH FWW UP TO COMODE. PT SPENDS 10 MINUTES ON COMODE AND IS ABLE TO PASS MODERATE SIZE BOWEL MOVEMENT. FIRM AND IN CLUMPS. HEMORID OR RECTAL PROLAPS NOTED AGAIN, PUSHED BACK IN DURING ERNESTINA CARE. FRESH DEPENDS IN PLACE. 1 PERSON ASSIST UP TO CHAIR FOR DINNER. PT REPORTS FEELING "MUCH BETTER." PT REPORTS 6/10 PAIN IN LEFT HIP. EVENING MEDICATION GIVEN. PT VISITING WITH FAMILY. NO ADDITIONAL REQUESTS OR COMPLAINTS. CALL LIGHT WITHIN REACH.
[2022-07-12 16:30] VITALS: BP 121/73
--- NOTE | 2022-07-12 16:44 | NUR ---
PT POST OP DAY 2 AFTER ORIF OF LIFT HIP. PT UP WITH 1 PERSON ASSIST AND FWW AND TOE TOUCH ONLY TO LEFT LEG TO CHAIR, COMODE AND WITH PHYSICAL THERAPY TODAY. PT RELUCTANT BUT WILLING TO WORK WITH PHYSICAL THERAPY. FREEQUENT PAIN MEDICATIONS GIVEN. PT TOLERATING REGULAR DIET WITH MINIMAL APPITITE. IV SALINE LOCKED. CMS REMAINS INTACT WITH STRONG PEDIAL AND TIBIAL PUSES, NORMAL SENSATION AND STRONG PLANTAR AND DORSI FLEXION THIS SHIFT. DRESSING REMAINS INTACT WITH ~10% OF SHADOWING DRAINAGE SEEN, OTHERWISE C/D/I. SMALL AMOUNTS OF GENERALIZED SWELLING SEEN LEFT THIGH, THIGH REMAINS SOFT. PT REPORTS CONSTIPATION THIS SHIFT. NEW MEDICATIONS AND ENEMA GIVEN. MODERATE FIRM BOWEL MOVEMENT NOTED. HEART MURMUR CONTINUES, NO CHANGE, WITH MILD TACHYCARDIA. I.S. PROVIDED AND PT DEMONSTRATES USE. ICE PACK IN PLACE PT DECLINES CRYO CUFF. PT VOIDING QUANITTY SUFFICIENT. PTS FAMILY AT BEDSIDE THROUGHOUT SHIFT. PT USESE CALL LIGHT AND MAKES NEEDS KNOWN.
--- NOTE | 2022-07-12 17:22 | NUR ---
THIS RN TO ROOM TO CHECK ON PT. PTS GRAND DENISSETHER REPORTS THAT PT WAS ASKING FOR HER CBD CREAM TO APPLY TO HER LEG. DAUGHTER STATES SHE REPORTED TO PT THAT THIS WAS NOT AVLIABLE. GRAND DAUGHTER ENCOURGED THAT SHE DID THE RIGHT THING AND REMINDED TO ASK NURSE/DOCTOR/PHARMACIST STAFF ABOUT ANY HOME MEDICATIONS OR CREAMS. GRAND DENISSETHER VERBALIZES UNDERSTANDING. PT REPORTS 4/10 PAIN AND STATES "ITS PRETTY GOOD RIGHT NOW." ICE PACK IN PLACE. PT EATING SOUP FROM HOME FOR DINNER. PT CONTINUES TO BE DROWSY AND CONFUSED AT TIMES STATING "I ALREADY HAD SUPPER HOURS AGO." PT REOREINTED TO TIME OF DAY. NO ADDITIONAL REQUSTS OR COMPLAINTS. CALL LIGHT WITHIN REACH. FAMILY AT BEDSIDE.
--- NOTE | 2022-07-12 18:38 | NUR ---
THIS RN TO ROOM TO CHECK ON PT. PT REPORTS SHE IS READY TO GET BACK TO BED. 1 PERSON ASSIST WITH FWW BACK TO BED. PT ASSISTED WITH REPOSITIONING IN BED. PT REPORTS 3/10 PAIN AFTER RESTING AND STATES IT IS WELL CONTROLLED BUT THEN STATES "CAN I HAVE MORE PAIN MEDICINE NOW?" RECCOMENDED TO PT TO TAKE AN ADDITIONAL PAIN PILL BEFORE BED. PT AGREES STATING "THAT WOULD BE JUST FINE." PT MORE ALERT AND OREINTED ("LESS FORGETFUL") AT THIS TIME. SCD'S AND HEAL PROTECTORS IN PLACE. FRESH ICE PACK PLACED. ICE WATER REFILLED. NO ADDITIONAL REQUESTS OR COMPLAINTS. FAMILY AT BEDSIDE. BED RAILS UP. CALL LIGHT WITHIN REACH.
[2022-07-12 19:33] VITALS: BP 104/67
--- NOTE | 2022-07-12 19:36 | NUR ---
Received report from day RN. Lindsey pt, left hip site looks within define limits and neuros intact. No complains of pain at the moment. Noticied mild wheeze on lower lobes. Encourged pt to use IS every hour.
--- NOTE | 2022-07-12 20:27 | NUR ---
call light answered, pt requesting evening medications. primary rn charan aware, this rn in room to update pt and tell her that rn will be in as soon as possible. pt verbalized understanding. pt in good spirits and states, "i think i turned a really good corner". pt and family denies needs or concerns. call light in reach.
--- NOTE | 2022-07-12 21:10 | NUR ---
Gave PM med. encouraged light snack to avoid nausea.
--- NOTE | 2022-07-12 22:42 | NUR ---
Pt got up x1 walker to the bathroom to void. Required morderate help. Pt had minimal pain during the walk. Back in bed with bedalarm. Family at bedside. Encouraged use of IS when awake.
--- NOTE | 2022-07-13 01:52 | NUR ---
Pt called to use the bathroom. Got up x1 with walker to bathroom , still unsteady. Ice pack refilled with ice. Complained of 6/10 moderate pain, gave tramadol. Pt seems much stronger and less pain from last night.
--- NOTE | 2022-07-13 02:26 | NUR ---
Pt complained of GERD called Dr. Spencer at [phone] got orders for Malox 30mg PRN q4. Will observe progress of patient.
[2022-07-13 05:11] VITALS: BP 108/72
--- NOTE | 2022-07-13 06:59 | NUR ---
Pt had a much better night. Was able to walk to the bathroom with walker 4 times, still unsteady. Pain more controled. Strength improving. encouraging IS and small meals with meds to avoid nausea. surgical site has no new changes.
--- NOTE | 2022-07-13 07:21 | NUR ---
Recieved report from night time babysitter nurse Ted. Patient currently laying in bed. Patient has family and bed side and Sammi from office is in the room talking to patient. Plan is for hopeful discharge tomorrow.
--- NOTE | 2022-07-13 08:52 | NUR ---
Patient in bed when walking into the room. Patient eating breakfast and would like to use the restroom. Patient helped out of the bed and is a SBA with walker to the restroom. Patient went back to chair to eat breakfast. Patient is having pain 7/10. See eMAR pain medications given. PT is also waiting for the medication to kick in and then help patient after she finishes her breakfast. Patient has family in room. Call light within reach. Denies any other cares at this time. Patient given morning medications.
--- NOTE | 2022-07-13 09:34 | NUR ---
Patient up working with Physical therapy currently.
[2022-07-13 09:43] VITALS: BP 100/67
[2022-07-13 09:50] VITALS: BP 100/67
--- NOTE | 2022-07-13 09:52 | NUR ---
Patient done with Physical therapy. Patient pain currently at 05/22. Ice applied to left hip. Per patient and physical therapist PT went really well. Patient back in chair now. Vitals done. Heal protectors placed back on patient. IV flushed, no complications. Fresh water with ice given. Family still at bedside with patient.
--- NOTE | 2022-07-13 10:58 | NUR ---
PT ALERT, ORIENTED AND VISITING WITH FAMILY. PT PLANS TO DC TO HER DAUGHTERS HOME IN [place] TO REHAB THEN EVENTUALLY HOME TO [place]. PT PLEASANT, FEELING MUCH BETTER TODAY. P.T. HAD JUST BEEN IN AND PAIN MEDS TAKEN BEFORE P.T. WAS A BIG HELP. GAVE PT A P.SHAWL, HAD PRAYER AND GAVE BLESSING.
--- NOTE | 2022-07-13 11:39 | NUR ---
Patient resting in the chair with her neck pillow on. Patient denies any needs at this time, she just wants to rest. Patient does look tired. Family at bedside. Blankets on patient, feet elevated, Ice pack on, call light within reach.
--- NOTE | 2022-07-13 13:00 | NUR ---
Patient given afternoon medications. Patient currently still sitting up in chair watching tv with feet elevated. Ice Pack on and off per patient. Patient denies needs. Call light within reach.
--- NOTE | 2022-07-13 13:43 | NUR ---
Patient resting in chair, this nurse will take patients afternoon vitals when she wakes up. I would rather not awake her.
[2022-07-13 14:58] VITALS: BP 102/60
--- NOTE | 2022-07-13 15:38 | NUR ---
PATIENT SITTING IN CHAIR WITH FAMILY AT BEDSIDE. PATIENT IS IN A GREAT MOOD AND VERY HAPPY WITH HOW THINGS ARE GOING. PATIENT DESCRIBES PAIN TO BE CONTROLLED AND DOES NOT FEEL SHE NEEDS TO GIVE IT A NUMBER.
[2022-07-13 18:30] VITALS: BP 117/73
[2022-07-13 20:12] VITALS: BP 126/69
--- NOTE | 2022-07-13 20:13 | NUR ---
Received report on pt. Assesed pt, complains of mild pain, lung wheezing better than yesterday. Pt daughter at bedside.
--- NOTE | 2022-07-14 00:27 | NUR ---
pt called to use the bathroom, pt walked with walker with minimal asssit. Complained of pain, gave tramdol and refilled ice pack.
--- NOTE | 2022-07-14 00:48 | NUR ---
Pt called back again as pain did not improve with tramadol. Pt stated he pain got worse. Gaev pt oxy 5mg with compazine to avoid nausea. Will monitor output.
[2022-07-14 01:14] VITALS: BP 106/70
--- NOTE | 2022-07-14 01:37 | NUR ---
Pt looks comfortable, sleeping. Will continue to monitor.
--- NOTE | 2022-07-14 03:51 | NUR ---
CLIENT SERVICE ASSOCIATE took pt to the bathroom, pt did request pain meds for her pain of 5/10, notified pt that its not due until 0600. Will monitor
[2022-07-14 05:27] VITALS: BP 128/86
--- NOTE | 2022-07-14 05:47 | NUR ---
Pt did not sleep the best due to increase in pain. Gave PRN meds which took a while to work, pt still complains of more pain compared to yesterday. Pt and pt daughter is slightly concerned about the moderate increase in pain as they expected the pain to get better daily. Lungs still had mild wheezing, encouraging IS use. Pt is passing lots of gas on each time she voids. Still no BM. Surgical site has very small increasing in shadowing. Otherwise, pt is needing minimal help to get out of bed and walk to the bathroom. Neuro's are intact otherwise.
--- NOTE | 2022-07-14 07:05 | NUR ---
Recieved report from chief projectionist nurse. Patient currenlty up in the chair. Fresh ice pack given. Denies any needs at this time. Call light within reach.
--- NOTE | 2022-07-14 07:15 | NUR ---
Pt had a medium formed BM this AM, had tinged blood when wiping , (has a small hemoroid) Also described her pain as muscle spasms which is causing the distress.
[2022-07-14] MEDS ORDERED: OXYCODONE HCL5 MG PO (08:22)
[2022-07-14] MEDS ORDERED: TRAMADOL HCL50 MG PO (08:22)
[2022-07-14] MEDS ORDERED: ELIQUIS5 MG PO (08:22)
[2022-07-14] MEDS ORDERED: BISACODYL5 MG PO (08:23)
[2022-07-14] MEDS ORDERED: HEALTHYLAX17 GM PO (08:23)
[2022-07-14] MEDS ORDERED: DULOXETINE HCL30 MG PO (08:23)
[2022-07-14] MEDS ORDERED: ONDANSETRON HCL4 MG PO (08:23)
--- NOTE | 2022-07-14 08:38 | NUR ---
RECVD ORDER FOR HOME HEALTH AT DISCHARGE. ORDER, FACESHEET, DC SUMMARY AND [id number] FAXED TO [facility]. CONFIRMED WITH LINDSAY AT [facility] THAT PATIENT IS ON THEIR SCHEDULE FOR TOMORROW. PATIENT MANNYMARGIE BABINEN AT THE BEDSIDE, UPDATED THAT HOME HEALTH WILL BE IN CONTACT WITH HER TODAY WITH FURTHER INSTRUCTION.
[2022-07-14 09:43] VITALS: BP 11/70; BP 110/70
--- NOTE | 2022-07-14 10:03 | NUR ---
PT SITTING IN CHAIR, FAMILY IN ATTENDANCE. PT TO DC TODAY TO DAUGHTER'S HOME GAVE ENCOURAGEMENT, FAMILY REQUESTED I CARE CARDS, VERY PLEASED WITH CARE PT HAS RECEIVED AT [facility]. PT REQUESTED PRAYER, GAVE BLESSING
--- NOTE | 2022-07-14 10:15 | NUR ---
PATIENT DISCHARGED TO HOME WITH FAMILY. PATIENT HAS ALL BELONGINGS AND ROOM HAS BEEN DOULBE CHECKED. IV HAS BEEN REMOVED AND CATH INTACT, COBAN PLACED. PATIENT ADVISED TO REMOVE ONCE HOME. CRYO CUFF SENT HOME WITH PATIENT. PATIENT TAKEN OUT IN WHEELCHAIR. EDUCATION DONE, PAPERS GIVEN TO PATIENT. PHARMACY HAS SEEN PATIENT. DENIES ANY OTHER CARES.
== END 2022-07-14 10:15 | disposition home or self-care (01) | DRG 480 ==
LOC: ED 15:39 → MS 17:24
PROVIDERS: ADMIT Specialist; ATTEND Specialist
PROC: 0QS704Z Reposition Left Upper Femur with Internal Fixation Device, Open Approach (ICD-10-PCS; principal; 2022-07-10 08:00)
DX: S72.142A Displaced intertrochanteric fracture of left femur, initial encounter for closed fracture (principal); I26.93 Single subsegmental thrombotic pulmonary embolism without acute cor pulmonale; I45.2 Bifascicular block; M80.08XA Age-related osteoporosis with current pathological fracture, vertebra(e), initial encounter for fracture; I10 Essential (primary) hypertension; R00.0 Tachycardia, unspecified; M47.9 Spondylosis, unspecified; M54.9 Dorsalgia, unspecified; K59.03 Drug induced constipation; G89.4 Chronic pain syndrome; K44.9 Diaphragmatic hernia without obstruction or gangrene; H91.90 Unspecified hearing loss, unspecified ear; T40.2X5A Adverse effect of other opioids, initial encounter; W01.0XXA Fall on same level from slipping, tripping and stumbling without subsequent striking against object, initial encounter; Z90.710 Acquired absence of both cervix and uterus; Z90.49 Acquired absence of other specified parts of digestive tract; Z98.890 Other specified postprocedural states; Z79.899 Other long term (current) drug therapy; Z79.891 Long term (current) use of opiate analgesic; Z86.79 Personal history of other diseases of the circulatory system; Z86.16 Personal history of COVID-19; Z86.19 Personal history of other infectious and parasitic diseases; Z85.3 Personal history of malignant neoplasm of breast; Z98.61 Coronary angioplasty status; Z88.8 Allergy status to other drugs, medicaments and biological substances; Z90.13 Acquired absence of bilateral breasts and nipples; Z98.82 Breast implant status
CPT/HCPCS: 01210; 36415; 71045; 71260; 72131; 73502; 80048; 80053; 81003; 83735; 85025; 86850; 86900; 86901; 93005; 93010; 93970; 93971; 97110; 97116; 97163; 97530; A9270; C1713; J0690; J0780; J1100; J1170; J1650; J2370; J2405; J2704; J3010; J3475; J3480; J3490; J7040; J7121; J7509; Q9967